=== PATIENT | male | born 1960 | race Caucasian/White ===

== ENCOUNTER 2016-10-24 18:34 | Emergency (ER) | payer OTHER ==
[~2016-10-24] VITALS: Ht 188 cm; Wt 90.9 kg
[~2016-10-24 18:34] MED LIST: ATOR80TA41 PO; DOCU1CAP32 PO; ECOT81TA2 PO; METO25 PO
[2016-10-24 18:45] VITALS: BP_SYST 120; BP_SYST 123; BP_DIAS 57; BP_DIAS 67; PULSE 54; PULSE 58; RESP 16; TEMP 98.1; TEMP 98.2; O2SAT 96
[2016-10-24 20:10] LABS: AUTOMATED NEUTROPHIL # 4.2 TH/MM3 (1.8-7.7); BASOPHIL % 0.7 % (0.0-2.0); EOSINOPHIL # 0.1 TH/MM3 (0-0.4); EOSINOPHIL % 1.7 % (0.0-4.0); HEMATOCRIT 39.1 % (39.0-51.0); HEMO FLAGS DIFF FINAL; LYMPH % 18.5 % (9.0-44.0); LYMPHOCYTE # 1.1 TH/MM3 (1.0-4.8); MEAN CELL VOLUME 93.5 FL (80.0-100.0); MEAN CORPUSCULAR HEMOGLOBIN 31.9 PG (27.0-34.0); MEAN CORPUSCULAR HGB CONC 34.1 % (32.0-36.0); MONO % 7.1 % (0.0-8.0); PLATELET COUNT 109 TH/MM3 (150-450); RED BLOOD COUNT 4.19 MIL/MM3 (4.50-5.90); WHITE BLOOD COUNT 5.8 TH/MM3 (4.0-11.0)
[2016-10-24 20:39] LABS: ANION GAP 8 MEQ/L (5-15); AST (GOT) 21 U/L (15-37); BICARBONATE 25.9 MEQ/L (21.0-32.0); BLOOD UREA NITROGEN 21 MG/DL (7-18); CHLORIDE 102 MEQ/L (98-107); GLOMERULAR FILTRATION RATE 77 ML/MIN (>89); POTASSIUM 3.8 MEQ/L (3.5-5.1); SODIUM (NA) 136 MEQ/L (136-145)
[2016-10-24 20:44] LABS: ALKALINE PHOSPHATASE 71 U/L (45-117); ALT (GPT) 34 U/L (12-78); TOTAL BILIRUBIN ADULT 0.4 MG/DL (0.2-1.0)
[2016-10-24] MEDS ORDERED: CIAL5TAB PO (21:31)
[2016-10-24] MEDS ORDERED: MULTCAP14 (21:31)
[2016-10-24] MEDS ORDERED: KELP100T (21:31)
[2016-10-24] MEDS ORDERED: OMEG5CAP (21:31)
[2016-10-24] MEDS ORDERED: METO25TA3 PO (21:31)
[2016-10-24] MEDS ORDERED: TARTCAP (21:31)
[2016-10-24] MEDS ORDERED: LEXA5TAB PO (21:31)
[2016-10-24] MEDS ORDERED: ASPI81CH CHEW (21:31)
[2016-10-24] MEDS ORDERED: FLAX10002 (21:31)
[2016-10-24] MEDS ORDERED: ATOR1TAB18 PO (21:31)
[2016-10-24] MEDS ORDERED: VITA100T15 PO (21:31)
[2016-10-24 21:32] VITALS: BP 116/85; PULSE 54; RESP 16; O2SAT 97
--- NOTE | 2016-10-24 21:33 | PD ---
HPI Chief Complaint: Dizziness Time Seen by Provider: 21:03 Travel History International Travel<30 days: No Contact w/Intl Traveler<30days: No Traveled to known affect area: No History of Present Illness HPI 56-year-old male with history of CAD, CABG, here for evaluation of an episode of lightheadedness/dizziness. The patient bent over to lift a heavy object when symptoms occurred at around 6:00 PM. Symptoms lasted for several minutes. The patient did not syncopized. He was not having any chest pain. Today the patient saw an ENT and had a nasopharyngeal scope performed and states that they sprayed and anesthetic in his nose. Triage vital signs show a heart rate of 58, blood pressure 123/57, pulse ox 96% on room air, oral temp of 98.1F. Labs are performed in triage and show an unremarkable CBC and BMP. When the patient was brought back to the room he states he is feeling a lot better. He is no longer dizzy. No longer lightheaded. No chest pain or dyspnea. No history of DVT or PE. No paresthesias or motor deficits. Patient reports feeling similar episodes to today when having blood drawn in the past. PFSH Past Medical History Asthma: No Anxiety: Yes Depression: No Heart Rhythm Problems: No Cancer: No Cardiac Catheterization: Yes Cardiovascular Problems: Yes (CABG 03/2015) High Cholesterol: Yes Chest Pain: Yes (PREVIOUSLY ADDRESSED.) COPD: No Diabetes: No Endocrine: No Genitourinary: No Hypertension: Yes Immune Disorder: No Implanted Vascular Access Dvce: Yes Musculoskeletal: No Neurologic: No Reproductive: No Respiratory: Yes (OBSTRUCTIVE SLEEP APNEA.) Sleep Apnea: Yes (HOME CPAP.) Past Surgical History Abdominal Surgery: No AICD: No Arteriovenous Shunt: No Cardiac Surgery: Yes (Triple Bypass March 12 2015) Coronary Artery Bypass Graft: Yes Ear Surgery: No Endocrine Surgery: No Eye Surgery: No Genitourinary Surgery: No Gynecologic Surgery: No Insulin Pump: No Joint Replacement: No Oral Surgery: No Pacemaker: No Thoracic Surgery: No Tonsillectomy: Yes Other Surgery: Yes (TONSILLECTOMY.) Social History Alcohol Use: Yes ("WEEKENDS") Tobacco Use: No Substance Use: No Allergies-Medications (Allergen,Severity, Reaction): Coded Allergies: No Known Allergies (Verified , 10/24/16) Reported Meds & Prescriptions Reported Meds & Active Scripts Active Reported Vitamin B12 (Cyanocobalamin) 100 Mcg Tab 100 Mcg PO DAILY Kelp 100 Mg Tab Tart [place] Advanced ([facility] Natural Products) 1 Cap Cap Multi For Him (Multiple Vitamins W/ Minerals) 1 Cap Cap Flax Seed Oil 1000 mg (Flaxseed (Linseed)) 1 Cap Cap Fish Oil 1200 mg ([place]-3 Fatty Acids) 1 Cap Cap Cialis (Tadalafil) 5 Mg Tab 5 Mg PO DAILY Do not exceed 1 dose/day. Lexapro (Escitalopram Oxalate) 5 Mg Tab 5 Mg PO DAILY Metoprolol Tartrate 25 Mg Tab 25 Mg PO BID Atorvastatin (Atorvastatin Calcium) 80 Mg Tab 80 Mg PO HS Aspirin 81 Mg Chew 81 Mg CHEW DAILY Review of Systems Except as stated in HPI: all other systems reviewed are Neg Physical Exam Narrative GENERAL: Well-developed, well-nourished, awake, alert, GCS 15, no acute distress. SKIN: Warm and dry. No rashes. No pallor. HEAD: Atraumatic. Normocephalic. EYES: Pupils equal, round, 3 mm, reactive to light. EOMI. No nystagmus. No scleral icterus. No injection or drainage. ENT: Mucous membranes pink and moist. Bilateral tympanic members are normal. NECK: Trachea midline. No JVD. CARDIOVASCULAR: Sinus bradycardia, rate 54. RESPIRATORY: No accessory muscle use. Clear to auscultation. Breath sounds equal bilaterally. GASTROINTESTINAL: Abdomen soft, non-tender, nondistended. MUSCULOSKELETAL: No obvious deformities. No clubbing. No cyanosis. No edema. NEUROLOGICAL: Awake and alert. No obvious cranial nerve deficits. Motor grossly within normal limits. Normal speech. No focal deficits. PSYCHIATRIC: Appropriate mood and affect; insight and judgment normal. Data Data Last Documented VS Vital Signs Date Time Temp Pulse Resp B/P Pulse Ox O2 Delivery O2 Flow Rate FiO2 10/24/16 21:32 54 16 116/85 97 Room Air 10/24/16 18:45 98.2 Orders Electrocardiogram (10/24/16 18:52) Complete Blood Count With Diff (10/24/16 18:52) Comprehensive Metabolic Panel (10/24/16 18:52) Labs Laboratory Tests Test 10/24/16 19:21 White Blood Count 5.8 TH/MM3 Red Blood Count 4.19 MIL/MM3 Hemoglobin 13.3 GM/DL Hematocrit 39.1 % Mean Corpuscular Volume 93.5 FL Mean Corpuscular Hemoglobin 31.9 PG Mean Corpuscular Hemoglobin 34.1 % Concent Red Cell Distribution Width 13.0 % Platelet Count 109 TH/MM3 Mean Platelet Volume 10.1 FL Neutrophils (%) (Auto) 72.0 % Lymphocytes (%) (Auto) 18.5 % Monocytes (%) (Auto) 7.1 % Eosinophils (%) (Auto) 1.7 % Basophils (%) (Auto) 0.7 % Neutrophils # (Auto) 4.2 TH/MM3 Lymphocytes # (Auto) 1.1 TH/MM3 Monocytes # (Auto) 0.4 TH/MM3 Eosinophils # (Auto) 0.1 TH/MM3 Basophils # (Auto) 0.0 TH/MM3 CBC Comment DIFF FINAL Differential Comment Sodium Level 136 MEQ/L Potassium Level 3.8 MEQ/L Chloride Level 102 MEQ/L Carbon Dioxide Level 25.9 MEQ/L Anion Gap 8 MEQ/L Blood Urea Nitrogen 21 MG/DL Creatinine 1.01 MG/DL Estimat Glomerular Filtration 77 ML/MIN Rate Random Glucose 88 MG/DL Calcium Level 8.3 MG/DL Total Bilirubin 0.4 MG/DL Aspartate Amino Transf 21 U/L (AST/SGOT) Alanine Aminotransferase 34 U/L (ALT/SGPT) Alkaline Phosphatase 71 U/L Total Protein 6.3 GM/DL Albumin 3.6 GM/DL [facility] Medical Decision Making Medical Screen Exam Complete: Yes Emergency Medical Condition: Yes Medical Record Reviewed: Yes Interpretation(s) EKG: Sinus, rate 52, normal axis, normal intervals, Q waves in anterior leads, no ST segment abnormalities, no T-wave abnormalities. Differential Diagnosis Near syncope, dysrhythmia, vasovagal episode, electrolyte abnormality, anemia Narrative Course Vital signs show heart rate 58, blood pressure 123/57, pulse ox 96% on room air , oral temp of 98.1F. CBC is unremarkable. CMP is unremarkable. Patient was made aware of all findings. He is comfortable. He is currently asymptomatic. He likely experienced a vasovagal episode. He did not have a syncopal episode. He denies having chest pain. No paresthesias or motor deficits. He is well-appearing. No fevers or recent illness. Sinus bradycardia is likely secondary to beta blockers. At this point I believe the patient is stable for discharge home with outpatient follow-up with his primary care physician and hand glass cutter this week. He was informed on when to return to the emergency department. He verbalizes understanding and agreement with plan. Diagnosis Primary Impression: Near syncope Additional Impression: Lightheadedness Referrals: Primary Care Physician 3 days Additional Instructions: Follow-up with your primary care physician this week. Follow-up with your hand glass cutter this week. Return to the emergency department for worsening symptoms or any other concerns as discussed. Disposition: 01 DISCHARGE HOME Condition: Stable Son Pang MD Oct 24, 2016 21:33
--- NOTE | 2016-10-27 22:53 | EKG ---
Date Performed: 10/24/2016 Time Performed: 19:13:50 PTAGE: 56 years EKG: SINUS BRADYCARDIA POSSIBLE ANTERIOR MYOCARDIAL INFARCTION ABNORMAL ECG PREVIOUS TRACING : 11/02/2015 17.24 Compared to prior tracing no significant change DOCTOR: Goldy Garcia Interpretating Date/Time 10/27/2016 22:50:55
== END 2016-10-24 21:52 | disposition home or self-care (01) ==
LOC: NEPE 18:34
DX: R55 Syncope and collapse (principal); R42 Dizziness and giddiness; R00.1 Bradycardia, unspecified; E78.00 Pure hypercholesterolemia, unspecified; R94.31 Abnormal electrocardiogram [ECG] [EKG]; I10 Essential (primary) hypertension; I25.10 Atherosclerotic heart disease of native coronary artery without angina pectoris; G47.30 Sleep apnea, unspecified; Z95.1 Presence of aortocoronary bypass graft
CPT/HCPCS: 80053; 85025; 93005